=== PATIENT | female | born 1990 | race Caucasian/White ===

== ENCOUNTER 2016-05-15 20:26 | Emergency (ER) | payer OTHER ==
[~2016-05-15] VITALS: Ht 160 cm; Wt 92.0 kg
[2016-05-15 20:28] VITALS: BP 180/109; PULSE 71; RESP 16; TEMP 97.6; O2SAT 100
[2016-05-15 22:25] VITALS: BP 162/88; PULSE 69
== END 2016-05-15 22:25 | disposition left against medical advice (07) ==
LOC: NED 20:26
DX: R03.0 Elevated blood-pressure reading, without diagnosis of hypertension (principal)
CPT/HCPCS: 99281